=== PATIENT | female | born 1965 | race Caucasian/White ===

== ENCOUNTER 2019-01-22 08:56 | Day surgery (SDC) | payer OTHER ==
[2019-01-22] MEDS ORDERED: MIDAZOLAM 1 MG/ML 2 ML INJ ×2 (10:26)
[2019-01-22] MEDS ORDERED: FENTAnyl 50 MCG/ML VIAL (10:26)
== END 2019-01-22 12:16 | disposition home or self-care (01) ==
LOC: GIL 08:56
DX: K92.1 Melena (principal); K64.8 Other hemorrhoids; K21.9 Gastro-esophageal reflux disease without esophagitis
CPT/HCPCS: 43239; 88305; 88312